=== PATIENT | female | born 1950 | race Caucasian/White ===

== ENCOUNTER 2016-08-03 09:33 | Emergency (ER) | payer OTHER, MEDICAID ==
[~2016-08-03] VITALS: Ht 154.9 cm; Wt 71.2 kg
[~2016-08-03 09:33] MED LIST: ACE PO; ASPIRIN LOW DOS81 M1 PO; COREG6.25 MG PO; COZAAR50 MG PO; CYCLOBENZAPRINE10 M1 PO; EXFORGE HCT 101 TAB PO; HYDROCODONE PO; ISORDIL20 MG PO; LIPITOR20 MG PO; LIPITOR80 MG PO; MACROBID100 M1 PO; MOTRIN600 MG PO; MOTRIN800 MG PO; NAPROSYN500 MG PO; RANEXA500 MG PO; ZANTAC150 MG PO
[2016-08-03 09:45] VITALS: BP 158/88
--- NOTE | 2016-08-03 09:49 | NUR ---
Patient ambulated to bed 07.
--- NOTE | 2016-08-03 10:01 | NUR ---
PATIENT PRESENTS TO ED DUE TO C/O EPIGASTRIC PAIN WITH NAUSEA AND VOMITING X LAST NIGHT DIARRHEA X3 EPISODES TODAY SKIN IS PINK/WARM/DRY; AAOX4 WITH EVEN AND STEADY GAIT; LUNGS CLEAR BL; HR EVEN AND REGULAR; PT DENIES ANY FEVER, CP, SOB, OR COUGH AT THIS TIME; PATIENT STATES PAIN OF 9/10 AT THIS TIME; PATIENT POSITIONED FOR COMFORT; HOB ELEVATED; BEDRAILS UP X2; BED DOWN. DR. SAINZ AT BEDSIDE, MD AWARE OF THE RESULT OF URINE DIPSTICK
--- NOTE | 2016-08-03 10:01 | NUR ---
Dr. Flaherty evaluating patient at bedside.
--- NOTE | 2016-08-03 10:23 | NUR ---
XRAY at bedside.
--- NOTE | 2016-08-03 10:30 | NUR ---
SPOKE TO DR. SAINZ IF WILL DO CT OR US, BECAUSE PT WANTS TO EAT, SAID NPO FOR NOW, WILL WAIT FOR THE LAB RESULT
[2016-08-03] MEDS ORDERED: NACL 0.9% 1,000 ML IV ONE (10:50)
[2016-08-03] MEDS ORDERED: MORPHINE SULFATE 4 MG/ML SYR IVP ONE (10:50)
--- NOTE | 2016-08-03 11:27 | NUR ---
PT TALKING IN THE PHONE, AAO, IVF ONGOING WELL TOLERATED.
--- NOTE | 2016-08-03 12:07 | NUR ---
PT AAO, PAIN LEVEL 3/10, IVF STILL ONGOING, NO VOMITTING NOTED.
--- NOTE | 2016-08-03 12:32 | NUR ---
DR. SAINZ AT BEDSIDE
--- NOTE | 2016-08-03 12:40 | NUR ---
[facility]
--- NOTE | 2016-08-03 12:49 | NUR ---
PT BACK FROM CT PT AAO.
--- NOTE | 2016-08-03 13:03 | NUR ---
PT AAO, WAITING FOR CT RESULT, NO VOMITTING NO DIARRHEA NOTED.
--- NOTE | 2016-08-03 14:23 | NUR ---
PT DR CHRISTOPHER DEKORDHI AT BEDSIDE, NO VOMITTING NOTED.
[2016-08-03 14:44] VITALS: BP 144/69
--- NOTE | 2016-08-03 14:45 | NUR ---
Patient discharged with v/s stable. Written and verbal after care instructions given and explained. Patient alert, oriented and verbalized understanding of instructions. Ambulatory with steady gait. All questions addressed prior to discharge. ID band removed. Patient advised to follow up with PMD. Rx of TYLENOL,ZANTAC,CIPRO given. Patient educated on indication of medication including possible reaction and side effects. Opportunity to ask questions provided and answered.ENCOURAGED FLUID INTAKE AND PT AGREED WITH IT
== END 2016-08-03 14:45 | disposition home or self-care (01) ==
LOC: MED 09:33
DX: N39.0 Urinary tract infection, site not specified (principal); K21.9 Gastro-esophageal reflux disease without esophagitis; I10 Essential (primary) hypertension; E78.00 Pure hypercholesterolemia, unspecified; F17.210 Nicotine dependence, cigarettes, uncomplicated; Z88.5 Allergy status to narcotic agent; Z98.890 Other specified postprocedural states; Z79.82 Long term (current) use of aspirin; Z79.899 Other long term (current) drug therapy
CPT/HCPCS: 36415; 71010; 74176; 80053; 81001; 82150; 83690; 84484; 84703; 85025; 87086; 93005; 96361; 96374; 99285; J2270; J7030; Q0092

== ENCOUNTER 2016-12-27 09:28 | Emergency (ER) | payer OTHER, MEDICAID ==
[~2016-12-27] VITALS: Ht 188 cm; Wt 72.6 kg
[~2016-12-27 09:28] MED LIST changes: -ACE PO; +ASPI81TA28 PO; -ASPIRIN LOW DOS81 M1 PO; +ATOR20TA PO; +CARV6.25 PO; -COREG6.25 MG PO; +COZ50 PO; -COZAAR50 MG PO; +CYCL10TA40 PO; -CYCLOBENZAPRINE10 M1 PO; -EXFORGE HCT 101 TAB PO; -HYDROCODONE PO; +IBUP-2213 PO; -ISORDIL20 MG PO; +ISOS20TA13 PO; -LIPITOR20 MG PO; -LIPITOR80 MG PO; -MACROBID100 M1 PO; -MOTRIN600 MG PO; -MOTRIN800 MG PO; -NAPROSYN500 MG PO; -RANEXA500 MG PO; +RANI-287 PO; +RANO500T3 PO; -ZANTAC150 MG PO
[2016-12-27 09:38] VITALS: BP 153/108
--- NOTE | 2016-12-27 09:46 | NUR ---
Patient ambulated to bed 04.
--- NOTE | 2016-12-27 09:48 | NUR ---
66/F BIB C/O N/V/D WITH ABDOMINAL PAIN X1 DAY. PATIENT IS UNABLE TO KEEP ANYTHING DOWN. C/O 10/10 ABDOMINAL PAIN RADIATES TO UPPER CHEST , SHOULDER & upper back. HX: GASTRITIS, HTN, GERD, HIGH CHOLESTEROL. pt sts pt has diarrhea 5 times x today. SKIN IS PINK/WARM/DRY; AAOX4 WITH EVEN AND STEADY GAIT; LUNGS CLEAR BL; HR EVEN AND REGULAR; PT DENIES ANY FEVER, CP, SOB, OR COUGH AT THIS TIME; PATIENT STATES PAIN OF 10/10 AT THIS TIME; VSS; PATIENT POSITIONED FOR COMFORT; HOB ELEVATED; BEDRAILS UP X2; BED DOWN. ER MD MADE AWARE OF PT STATUS.
--- NOTE | 2016-12-27 09:50 | NUR ---
ER MD DR BOSS EVALUATING PT AT BEDSIDE.
--- NOTE | 2016-12-27 10:09 | NUR ---
URINE DIP DONE, URINE SPECIMEN SENT TO LAB.
[2016-12-27] MEDS ORDERED: ONDANSETRON 4 MG/2 ML VIAL IVP ONE ×2 (10:10→11:20)
[2016-12-27] MEDS ORDERED: HYDROmorphone 1 MG/ML AMP IVP ONE (10:10)
[2016-12-27] MEDS ORDERED: NACL 0.9% 1,000 ML IV ONE (10:10)
--- NOTE | 2016-12-27 10:18 | NUR ---
INSERTED IV CATH NO 20 G LAC. PT TOLERATED PROCEDURE WELL. IV PATENT/ INTACT. ADMINISTED MED IV ORDER. Addendum: 12/27/16 at 1050 by [email or web address] AT BEDSIDE
[2016-12-27 10:28] LABS: BASOPHILS # (AUTO) 0.1 K/uL (0.00-0.22); BASOPHILS % (AUTO) 1.4 % (0.0-2.0); EOSINOPHILS # (AUTO) 0.3 K/uL (0-0.4); EOSINOPHILS % (AUTO) 2.4 % (0.0-4.0); HEMATOCRIT 41.8 % (36-48); HEMOGLOBIN 13.9 g/dL (12.0-16.0); LYMPHOCYTES % (AUTO) 18.4 % (20.5-51.1); MEAN CORPUSCULAR HEMOGLOBIN 30 pg (27-31); MEAN CORPUSCULAR HGB CONC 33 g/dL (33-37); MEAN CORPUSCULAR VOLUME 91 fL (80-94); MONOCYTES # (AUTO) 0.6 K/uL (0.8-1.0); MONOCYTES % (AUTO) 5.6 % (1.7-9.3); NEUTROPHILS # (AUTO) 7.7 K/uL (1.8-7.7); NEUTROPHILS % (AUTO) 72.2 % (42.2-75.2); PLATELET COUNT (AUTO) 300 K/uL (140-450); RED BLOOD CELL COUNT(AUTO) 4.61 MIL/uL (4.20-5.40); RED CELL DISTRIBUTION WIDTH 13.8 % (11.6-13.7); WHITE BLOOD COUNT (AUTO) 10.7 K/uL (4.8-10.8)
[2016-12-27 10:31] LABS: APPEARANCE,URINE CLEAR (CLEAR); BILIRUBIN,URINE NEGATIVE (NEGATIVE); BLOOD, URINE 3+ (NEGATIVE); COLOR,URINE YELLOW (YELLOW); LEUKOCYTE ESTERASE ,URINE NEGATIVE (NEGATIVE); NITRITE, URINE NEGATIVE (NEGATIVE); PH,URINE 5.5 (5.0-9.0); PROTEIN,URINE NEGATIVE (NEGATIVE); UGLUCOSE NEGATIVE (NEGATIVE); UROBILINOGEN,URINE 0.2 EU/dL (0.2 - 1)
[2016-12-27 10:42] LABS: RBC,URINE 3-10 (FEW) /HPF (0-5); WBC,URINE 0-5 (RARE) /HPF (0-5)
[2016-12-27 10:43] LABS: BACTERIA,URINE I /HPF (None Seen)
--- NOTE | 2016-12-27 10:43 | NUR ---
PT STS ABD PAIN 12/24. AT BEDSIDE. Patient appears to be resting comfortably in bed. Vital Signs within normal limits. Respirations even and unlabored.WILL CONTINUE TO MONITOR.
[2016-12-27 10:46] LABS: ANION GAP 12.1 (8-16); CALCIUM 8.4 mg/dL (8.5-10.1); CARBON DIOXIDE 27.3 mmol/L (21-32); CREATININE 0.6 mg/dL (0.6-1.3); POTASSIUM 4.4 mmol/L (3.5-5.1)
[2016-12-27 10:51] LABS: ALBUMIN 3.6 g/dL (3.4-5.0); TOTAL BILIRUBIN 0.5 mg/dL (0.0-1.0); TOTAL PROTEIN, SERUM 6.9 g/dL (6.4-8.2)
--- NOTE | 2016-12-27 10:53 | NUR ---
ER MD DR BOSS REEVALUATING PT AT BEDSIDE.
--- NOTE | 2016-12-27 10:53 | NUR ---
Dr. Carey evaluating patient at bedside.
--- NOTE | 2016-12-27 11:09 | NUR ---
PT STS PAIN 5/10
[2016-12-27 11:26] LABS: AMYLASE 37 U/L (25-115); LIPASE 50 U/L (73-393)
--- NOTE | 2016-12-27 11:30 | NUR ---
Patient appears to be SLEEPING comfortably in bed. BP 152/74,MD AWARE. Respirations even and unlabored.WILL CONTINUE TO MONITOR.
--- NOTE | 2016-12-27 11:39 | NUR ---
Patient taken to CT via [facility].
--- NOTE | 2016-12-27 11:56 | NUR ---
Patient back from CT via [facility].
--- NOTE | 2016-12-27 12:09 | NUR ---
Patient appears to be resting comfortably in bed. BP 159/98,P 79, MD AWARE, Respirations even and unlabored.WILL CONTINUE TO MONITOR.
--- NOTE | 2016-12-27 12:50 | NUR ---
Patient appears to be SLEEPING comfortably in bed. 152/81, P72, MD AWARE. Respirations even and unlabored.WILL CONTINUE TO MONITOR. & SISTER AT BEDSIDE.
--- NOTE | 2016-12-27 13:28 | NUR ---
ER MD DR BOSS REEVALUATING PT AT BEDSIDE.
[2016-12-27] MEDS ORDERED: KETOROLAC 30 MG/ML VIAL IVP ONE (13:35)
--- NOTE | 2016-12-27 13:38 | NUR ---
PT STS HEADACHE 10/24; ER MD DR BOSS ORDERED TORADOL 15MG IV .
--- NOTE | 2016-12-27 13:43 | NUR ---
ADMINISTERED TORADOL 15MG IV LAC ORDER.
--- NOTE | 2016-12-27 13:49 | NUR ---
IV removed, catheter intact and site benign. Applied folded 4x4 gauze and tape to stop bleeding.
--- NOTE | 2016-12-27 14:00 | NUR ---
PT STS HEADACHE LEVEL 2/10.
[2016-12-27 14:03] VITALS: BP 158/73
--- NOTE | 2016-12-27 14:04 | NUR ---
Patient discharged with v/s stable. Written and verbal after care instructions given and explained. Patient alert, oriented and verbalized understanding of instructions. Ambulatory with steady gait. All questions addressed prior to discharge. ID band removed. Patient advised to follow up with PMD. Rx of PROTONIX, NORCO & ZOFRAN given. Patient educated on indication of medication including possible reaction and side effects. Opportunity to ask questions provided and answered.
== END 2016-12-27 14:04 | disposition home or self-care (01) ==
LOC: MED 09:28
DX: K29.70 Gastritis, unspecified, without bleeding (principal); I25.10 Atherosclerotic heart disease of native coronary artery without angina pectoris; K21.9 Gastro-esophageal reflux disease without esophagitis; I10 Essential (primary) hypertension; E78.00 Pure hypercholesterolemia, unspecified; Z79.82 Long term (current) use of aspirin; Z88.5 Allergy status to narcotic agent; Z90.49 Acquired absence of other specified parts of digestive tract; Z79.899 Other long term (current) drug therapy
CPT/HCPCS: 36415; 74177; 80053; 81001; 81025; 82150; 83690; 85025; 96361; 96374; 96375; 99285; J1170; J1885; J2405; J7030; Q9967

== ENCOUNTER 2018-02-04 16:45 | Emergency (ER) | payer OTHER, MEDICAID ==
[~2018-02-04] VITALS: Ht 147.3 cm; Wt 66.2 kg
[~2018-02-04 16:45] MED LIST changes: +ASPI81EC PO; -ASPI81TA28 PO; +CYCL10TA14 PO; -CYCL10TA40 PO
[2018-02-04 17:00] VITALS: BP 115/60
--- NOTE | 2018-02-04 17:10 | NUR ---
PT AMBULATED WITH ASSISTANCE TO ER BED 09
--- NOTE | 2018-02-04 17:15 | NUR ---
PATIENT PRESENTS TO ED WITH COMPLAINTS OF GENERAL WEAKNESS AND PAIN. PATIENT CRYING UNCONSOLABLY AND STATES SHE DOES NOT KNOW WHY. AAOX4 WITH EVEN AND STEADY GAIT; LUNGS CLEAR BL; HR EVEN AND REGULAR; PT DENIES ANY FEVER, CP, SOB, OR COUGH AT THIS TIME; PATIENT STATES PAIN OF 7/10 AT THIS TIME; VSS; PATIENT POSITIONED FOR COMFORT; HOB ELEVATED; BEDRAILS UP X1; BED DOWN. ER MD MADE AWARE OF PT STATUS.
[2018-02-04] MEDS ORDERED: NACL 0.9% 1,000 ML IV ONE (17:30)
[2018-02-04] MEDS ORDERED: LORazepam 2 MG/ML VIAL IVP ONE (17:30)
[2018-02-04] MEDS ORDERED: KETOROLAC 30 MG/ML VIAL IVP ONE (17:30)
[2018-02-04 18:07] LABS: BASOPHILS % (AUTO) 0.3 % (0.0-2.0); EOSINOPHILS # (AUTO) 0.1 K/uL (0-0.4); EOSINOPHILS % (AUTO) 1.1 % (0.0-4.0); HEMATOCRIT 38.5 % (36-48); HEMOGLOBIN 12.8 g/dL (12.0-16.0); LYMPHOCYTES # (AUTO) 3.6 K/uL (2.5-16.5); LYMPHOCYTES % (AUTO) 33.1 % (20.5-51.1); MEAN CORPUSCULAR HEMOGLOBIN 31 pg (27-31); MEAN CORPUSCULAR HGB CONC 33 g/dL (33-37); MONOCYTES # (AUTO) 0.5 K/uL (0.8-1.0); MONOCYTES % (AUTO) 4.4 % (1.7-9.3); NEUTROPHILS # (AUTO) 6.5 K/uL (1.8-7.7); NEUTROPHILS % (AUTO) 61.1 % (42.2-75.2); PLATELET COUNT (AUTO) 377 K/uL (140-450); RED BLOOD CELL COUNT(AUTO) 4.18 MIL/uL (4.20-5.40); RED CELL DISTRIBUTION WIDTH 14.9 % (11.6-13.7); WHITE BLOOD COUNT (AUTO) 10.7 K/uL (4.8-10.8)
[2018-02-04 18:17] LABS: ANION GAP 7.9 (8-16); CARBON DIOXIDE 31.2 mmol/L (21-32); CREATININE 0.7 mg/dL (0.6-1.3); POTASSIUM 3.1 mmol/L (3.5-5.1)
[2018-02-04 18:23] LABS: ALBUMIN 3.5 g/dL (3.4-5.0); TOTAL BILIRUBIN 0.4 mg/dL (0.0-1.0)
[2018-02-04] MEDS ORDERED: POTASSIUM CHLORIDE 10 MEQ TABER PO ONE (18:30)
[2018-02-04] MEDS ORDERED: MAGNESIUM OXIDE 400 MG TAB PO ONE (18:30)
[2018-02-04 19:25] VITALS: BP 128/72
--- NOTE | 2018-02-04 19:29 | NUR ---
Patient discharged with v/s stable. Written and verbal after care instructions given and explained. Patient verbalized understanding. Wheel Chair Assisted with to car. All questions addressed prior to discharge. Advised to follow up with PMD.
== END 2018-02-04 19:29 | disposition home or self-care (01) ==
LOC: MED 16:45
DX: R53.1 Weakness (principal); F32.9 Major depressive disorder, single episode, unspecified; F41.9 Anxiety disorder, unspecified; R63.0 Anorexia; R51 Headache; K21.9 Gastro-esophageal reflux disease without esophagitis; I10 Essential (primary) hypertension; Z88.8 Allergy status to other drugs, medicaments and biological substances; Z79.82 Long term (current) use of aspirin; Z79.899 Other long term (current) drug therapy
CPT/HCPCS: 36415; 71045; 80053; 84484; 85025; 93005; 96374; 96375; 99285; J1885; J2060; Q0092

== ENCOUNTER 2018-02-17 15:47 | Emergency (ER) | payer OTHER, MEDICAID ==
[~2018-02-17] VITALS: Ht 162.6 cm; Wt 67.6 kg
[2018-02-17 15:57] VITALS: BP 160/72
--- NOTE | 2018-02-17 16:04 | NUR ---
PT AMB TO BED8
--- NOTE | 2018-02-17 16:05 | NUR ---
68/M BIB WITH C/O GENERALIZED RASH AFTER EATING [employer] LAST SATURDAY WITH ITCHY AND COUGH; DENIES SOB. HX; HTN, HYPERCHOLESTEROLEMIA, GASTRITIS. RX; "CAN'T REMEMBER" DENIES N/V/D; AAOX4 WITH EVEN AND STEADY GAIT; LUNGS CLEAR BL; HR TACHY 105/MINS; PT DENIES ANY FEVER, CP OR SOB AT THIS TIME; PATIENT STATES PAIN OF 5/10 AT THIS TIME; VSS; PATIENT POSITIONED FOR COMFORT; HOB ELEVATED; BEDRAILS UP X2; BED DOWN. ER MADE AWARE OF PT STATUS. Addendum: 02/17/18 at 1613 by [email or web address] PT STATED" TOOK MED FOR STOMACHE PAIN X 3 TIMES ; BOUGHT FROM [employer]"
--- NOTE | 2018-02-17 16:11 | NUR ---
Dr. Clifford evaluating patient at bedside.
[2018-02-17] MEDS ORDERED: FAMOTIDINE 20 MG TAB PO ONE (16:15)
[2018-02-17] MEDS ORDERED: hydrOXYzine HCL 25 MG TAB PO ONE (16:15)
[2018-02-17] MEDS ORDERED: DEXAMETHASONE 10 MG/ML VIAL IM ONE (16:15)
[2018-02-17 17:30] VITALS: BP 110/50
--- NOTE | 2018-02-17 17:30 | NUR ---
Patient discharged with v/s stable. Written and verbal after care instructions given and explained. Patient alert, oriented and verbalized understanding of instructions. Ambulatory with steady gait. All questions addressed prior to discharge. ID band removed. Patient advised to follow up with PMD. Rx of PREDNISONE, RANITIDINE & ATARAX given. Patient educated on indication of medication including possible reaction and side effects. Opportunity to ask questions provided and answered.
== END 2018-02-17 17:30 | disposition home or self-care (01) ==
LOC: MED 15:47
DX: R21 Rash and other nonspecific skin eruption (principal); T50.995A Adverse effect of other drugs, medicaments and biological substances, initial encounter; K21.9 Gastro-esophageal reflux disease without esophagitis; I10 Essential (primary) hypertension; Z88.8 Allergy status to other drugs, medicaments and biological substances; Z79.899 Other long term (current) drug therapy; Y92.89 Other specified places as the place of occurrence of the external cause
CPT/HCPCS: 96372; 99283; J1100